=== PATIENT | male | born 1970 | race Caucasian/White ===

== ENCOUNTER 2024-01-18 04:19 | Emergency (ER) | payer OTHER, SELFPAY ==
[2024-01-18 04:19] VITALS: BP 153/92
--- NOTE | 2024-01-18 04:49 | ED.SKININJ ---
HPI-Injury
General
Chief Complaint: Skin Surface Trauma
Source: patient and spouse
Exam Limitations: none
Time Seen by Provider: 01/18/24 04:25
Nursing documentation reviewed up to this point in time: agreed with
History of Present Illness-Injury
Is this injury a work related problem?: No
Initial Injury comments:
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
left thumb on a table saw. Mild bleeding initially which has stopped with local pressure.
He mitts to mild local tenderness distal thumb but no weakness or numbness.
He is up-to-date with Tdap having received this within the past 5 years.
He takes no anticoagulants.
Past History
Past History
ED Past Medical History: None
ED Past Surgical History: Urological (Vasectomy)
Social History
Tobacco: Non-smoker
Alcohol: Occasional
Personal:
Living: with family
Employment: Employed
Family History
Family History: Other (Noncontributory)
Skin Exam
Avulsion
Left Distal Thumb:
Type of avulsion injury: superfical (Superficial elliptical shaped avulsion distal left thumb approximately 1 cm in length x 3 mm in width. No active bleeding. Mild local tenderness to palpation.)
Any active bleeding?: no active bleeding
Distal skin color and temperature: normal-warm & good color
Normal distal neurovascular exam: Yes
Phy Exam
Physical Exam
Physical Exam:
PHYSICAL EXAMINATION:
General: 53-year-old gentleman appears his stated age, bright and alert, pleasant, appears in no acute distress. is accompanying.
Neuro: alert and oriented. no focal neurological deficits
Psychiatric: well kept. interactive and cooperative
Musculoskeletal: [Superficial, elliptical shaped avulsion laceration distal aspect of the left thumb. No active bleeding. Sensation and strength intact. Rapid capillary refill. Full range of motion without difficulty nor
pain.]
Course
Vital Signs
Initial and Last Documented VS:
Initial Vital Signs
Temp Pulse Resp BP Pulse Ox
98.3 F 66 18 153/92 99
01/18/24 04:19 01/18/24 04:19 01/18/24 04:19 01/18/24 04:19 01/18/24 04:19
Last Documented Vital Signs
Temp Pulse Resp BP Pulse Ox
98.3 F 66 18 153/92 99
01/18/24 04:19 01/18/24 04:19 01/18/24 04:19 01/18/24 04:19 01/18/24 04:19
MDM/Problems Addressed
Differential Diagnosis Includes:
Patient presents with superficial avulsion type laceration distal left thumb.
Bleeding has subsided with local pressure.
This laceration is very superficial, not amenable to suture repair.
Will place a Gelfoam and bulky dressing as precautionary measures to prevent recurrent bleeding.
He may remove the Gelfoam later this evening and then redressed the wound with bacitracin and Band-Aid.
Wound care instructions discussed.
No indication for oral antibiotic; topical antibiotic should suffice.
Patient is up-to-date with Tdap. No indication for booster.
Recommend Tylenol versus ibuprofen as needed for pain.
Follow-up with PCP as needed.
*Pulse Oximetry
Patient hypoxic: no
*Critical Care Note
Total Time (30-74mins, 75-104mins- exclusive of procedures): Not Applicable
ED Attending Note
-
Portions of this chart may have been created with voice recognition software.� Occasional wrong word or��sound alike� substitutions may have occurred due to the inherent limitations of voice recognition software.
Discharge Plan
Departure
Patient Disposition: Home (Routine Discharge)
Date of Disposition: 11/12/24
Time of Disposition: 04:51
Patient with high blood pressure during this ER visit?: No
Condition: Good
Discharge Problem:
avulsion laceration left thumb
Instructions: Wound Care (DC)
Activity Restrictions/Additional Instructions:
Follow-up with your primary care physician as needed.
You can take the Gelfoam and bulky dressing off later this evening. Thereafter apply local antibiotic ointment such as bacitracin or Neosporin along with fingertip Band-Aid.
Interventions
Interventions:
*Risk Screen - Suicide Last Done: 01/18/24 04:22
*General Assessment Last Done: 01/18/24 04:30
*Neglect/Abuse Screening Last Done: 01/18/24 04:30
ED- Fall Risk Assessment Last Done: 01/18/24 04:30
*ED COVID-19 Vaccine History Last Done: 01/18/24 04:24
Discharge Date and Time
Print Language: [place]
[2024-01-18 05:00] VITALS: BP 134/87
--- NOTE | 2024-01-18 05:21 | EDRN ---
of his L thumb. Bleeding controlled with pressure.
== END 2024-01-18 05:00 | disposition home or self-care (01) ==
LOC: EMR 04:19
PROVIDERS: EMERGENCY PHYSICIAN Emergency Medicine; FAMILY PHYSICIAN Physician Assistant
DX: S61.012A Laceration without foreign body of left thumb without damage to nail, initial encounter (principal); W31.2XXA Contact with powered woodworking and forming machines, initial encounter
CPT/HCPCS: 99282